=== PATIENT | female | born 1960 | race Caucasian/White ===

== ENCOUNTER 2022-07-06 07:56 | Day surgery (SDC) | payer MEDICAID ==
[2022-07-01 12:00] LABS: BASOPHILS % (AUTO) 0.3 % (0-1); EOSINOPHILS # (AUTO) 0.1 X10'3 (0-0.9); EOSINOPHILS % (AUTO) 1.8 % (0-6); HEMATOCRIT 37.6 % (35.0-45.0); LYMPHOCYTES # (AUTO) 1.6 X10'3 (1.1-4.8); LYMPHOCYTES % (AUTO) 20.6 % (21-51); MEAN CORPUSCULAR HEMOGLOBIN 31.2 PG (27.0-31.0); MEAN CORPUSCULAR HGB CONC 34.4 g/dL (33.0-36.5); MEAN CORPUSCULAR VOLUME 90.5 FL (78-98); MEAN PLATELET VOLUME 7.4 FL (7.4-10.4); MONOCYTES # (AUTO) 0.5 X10'3 (0-0.9); MONOCYTES % (AUTO) 5.9 % (2-12); NEUTROPHILS # (AUTO) 5.5 X10'3 (1.8-7.7); NEUTROPHILS % (AUTO) 71.4 % (42-75); PLATELET COUNT 277 X10'3 (140-440); RED BLOOD COUNT 4.16 X10'6 (4.20-5.60); RED CELL DISTRIBUTION WIDTH 13.3 % (11.5-14.5); WHITE BLOOD COUNT 7.8 X10'3 (4.5-11.0)
[2022-07-01 12:08] LABS: APTT 24 SECONDS (22-32)
[2022-07-01 12:14] LABS: ALANINE AMINOTRANSFERASE 63 U/L (12-78); ALBUMIN 3.7 G/DL (3.4-5.0); ALBUMIN/GLOBULIN RATIO 1.1 (1.1-1.5); ALKALINE PHOSPHATASE 123 IU/L (46-116); ANION GAP 8 (8-16); ASPARTATE AMINO TRANSFERASE 38 U/L (10-37); BILIRUBIN,TOTAL 0.3 MG/DL (0.1-1.0); BLOOD UREA NITROGEN 16 MG/DL (7-18); BUN/CREATININE RATIO 16.8 (6.6-38.0); CALCIUM 8.8 MG/DL (8.5-10.1); CHLORIDE 103 MMOL/L (99-107); CREATININE 0.95 MG/DL (0.40-0.90); GLUCOSE 122 MG/DL (70-104); POTASSIUM 4.5 MMOL/L (3.5-5.1); SODIUM 138 MMOL/L (135-145); TOTAL CARBON DIOXIDE 26.7 MMOL/L (24-32); eGFR 60 ML/MIN
[2022-07-06] VITALS (11 sets, daily range): BP systolic 140–170; BP diastolic 62–88
[~2022-07-06] VITALS: Ht 167.6 cm; Wt 117.8 kg
[2022-07-06] MEDS ORDERED: normal saline 1,000 ML IV SCH (08:20)
[2022-07-06] MEDS ORDERED: nitroGLYCERIN 0.4mg SUBLingual tab SL PRN ×2 (08:20→11:30)
[2022-07-06] MEDS ORDERED: LORazepam 0.5 MG tablet PO PRN (08:20)
[2022-07-06] MEDS ORDERED: diphenhydrAMINE 25mg capsule PO PRN (08:20)
[2022-07-06] MEDS ORDERED: DEXTROSE 15 GM of carb/4 tabs (each vial/BOTTLE has 4 tablets) PO PRN ×2 (08:40)
[2022-07-06] MEDS ORDERED: glucagon, human recombinant 1mg kit SUBCUT PRN (08:40)
[2022-07-06] MEDS ORDERED: insulin Lispro (HumaLOG) vial - multi-dose SQ SCH (08:40)
[2022-07-06] MEDS ORDERED: dextrose 50%-water 50ml dispensing syringe IV PRN ×2 (08:40)
[2022-07-06] MEDS ORDERED: MESSAGE TO PHARMACY PO ONE (08:40)
[2022-07-06] MEDS ORDERED: ATOR20TA66 PO (09:00)
[2022-07-06] MEDS ORDERED: CYCL5TAB PO (09:00)
[2022-07-06] MEDS ORDERED: LISI40TA13 PO (09:00)
[2022-07-06] MEDS ORDERED: NOVLG SQ (09:00)
[2022-07-06] MEDS ORDERED: OXYB5TAB16 PO (09:00)
[2022-07-06] MEDS ORDERED: GABA-530 PO (09:00)
[2022-07-06] MEDS ORDERED: LANTUS SQ (09:00)
[2022-07-06] MEDS ORDERED: HYDR-3972 PO (09:00)
[2022-07-06] MEDS ORDERED: SITA100T15 PO (09:00)
[2022-07-06] MEDS ORDERED: ESTR0.5T28 PO (09:00)
[2022-07-06] MEDS ORDERED: DICL50TA8 PO (09:00)
[2022-07-06] MEDS ORDERED: SEMA1PEN3 SQ (09:00)
[2022-07-06] MEDS ORDERED: OMEP40CA21 PO (09:00)
[2022-07-06] MEDS ORDERED: MELO-100 PO (09:00)
[2022-07-06] MEDS ORDERED: METF-438 PO (09:00)
[2022-07-06] MEDS ORDERED: LIDOcaine 1% 30ml preserv. free vial ONE (09:18)
[2022-07-06] MEDS ORDERED: iohexol 350 MG/ML 50ML vial IV ONE (09:18)
[2022-07-06] MEDS ORDERED: midazolam 1 mg/ML 2ml injection ONE (09:18)
[2022-07-06] MEDS ORDERED: iohexol 350MG/ML 100ml bottle IV ONE (09:18)
[2022-07-06] MEDS ORDERED: fentaNYL/PF 50MCG/1 ML 2ML syringe ONE (09:18)
[2022-07-06] MEDS ORDERED: HYDROcodone/acetaminophen 10/325mg tab PO PRN (11:30)
[2022-07-06] MEDS ORDERED: HYDROcodone/acetaminophen 5mg/325mg tablet PO PRN (11:30)
[2022-07-06] MEDS ORDERED: normal saline 1000ml 1,000 ML IV SCH (11:30)
[2022-07-06] MEDS ORDERED: proCHLORperazine 10 MG/2 ml inj IV PRN (11:30)
[2022-07-06] MEDS ORDERED: ondansetron/PF 4mg/2ml inj IV PRN (11:30)
[2022-07-06] MEDS ORDERED: OXAZEpam 15mg capsule PO PRN (11:30)
[2022-07-06] MEDS ORDERED: insulin glargine (Lantus) pen - multi-dose SQ SCH (21:00)
== END 2022-07-06 16:50 | disposition home or self-care (01) ==
LOC: SSTAY O 07:56
PROVIDERS: ATTEND Internal Medicine Cardiovascular Disease
DX: R94.39 Abnormal result of other cardiovascular function study (principal); I25.10 Atherosclerotic heart disease of native coronary artery without angina pectoris; I10 Essential (primary) hypertension; E11.9 Type 2 diabetes mellitus without complications; G89.4 Chronic pain syndrome; F17.200 Nicotine dependence, unspecified, uncomplicated; Z98.890 Other specified postprocedural states; Z88.5 Allergy status to narcotic agent; Z96.652 Presence of left artificial knee joint; Z79.84 Long term (current) use of oral hypoglycemic drugs; Z79.4 Long term (current) use of insulin; Z79.1 Long term (current) use of non-steroidal anti-inflammatories (NSAID); Z79.899 Other long term (current) drug therapy
CPT/HCPCS: 36415; 71046; 80053; 82948; 85025; 85610; 85730; 93005; 93458; 99152; C1760; C1769; J1644; J1815; J2250; J3010; J3490; J7030; Q0163; Q9967; A4615; A6258